=== PATIENT | male | born 1955 | race Caucasian/White ===

== ENCOUNTER 2020-03-29 08:41 | Emergency (ER) | payer OTHER ==
[2020-03-29] MEDS ORDERED: Sodium Chloride 0.9% 10 ML Syringe FLUSH PRN ×2 (08:49→09:18)
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
[2020-03-29] MEDS ORDERED: Iopamidol 612 MG/ML 100 ML Bottle IVPUSH ONE (09:18)
--- NOTE | 2020-03-29 09:30 | CT ---
Head CT Technique: Multiple axial sections through the brain were obtained. Intravenous contrast was not utilized. Comparison: No prior intracranial imaging is available. Findings: Ventricles along with basal cisterns and sulci over the convexities are mildly prominent. No abnormal parenchymal densities are seen. No evidence of intracranial hemorrhage. No midline shift or mass-effect is seen. Bone window settings were reviewed. Mild mucosal thickening is seen within the maxillary sinuses and ethmoid sinuses. Mild mucosal thickening is seen within the right frontal sinus. These findings are most likely due to chronic sinusitis. Mastoid sinuses show nothing acute. No acute calvarial finding is seen. Impression: 1. Sinus findings which are most likely due to mild chronic sinusitis. 2. No acute intracranial abnormality is appreciated. Diagnostic code #2 This report was dictated in MDT
--- NOTE | 2020-03-29 09:40 | CR ---
Left ankle: 4 views left ankle were obtained. Ankle mortise is symmetric. No acute fracture, dislocation or other bony abnormality is appreciated. Impression: 1. No abnormality is appreciated on 4 view left ankle exam. Diagnostic code #1 This report was dictated in MDT
--- NOTE | 2020-03-29 09:40 | CR ---
Chest: Frontal view of the chest was obtained. Comparison: No prior chest imaging. Bony density is noted off the inferior humeral head which is believed to be dystrophic or due to old injury. Heart size and mediastinum are normal. Lungs are clear. Minimal deformity of the distal left clavicle is seen compatible with old healed fracture. Surgical clips are seen from prior cholecystectomy. Impression: 1. Chronic findings. 2. Nothing acute is seen on frontal chest x-ray. Diagnostic code #2 This report was dictated in MDT
--- NOTE | 2020-03-29 09:40 | CT ---
CT abdomen and pelvis Technique: Multiple axial sections were obtained from above the dome of the diaphragm inferiorly through the pubic symphysis. Intravenous contrast was utilized. No oral contrast has been given. Findings: Large pancreatic abnormality is seen within the pancreatic head. Dilatation of the main pancreatic duct is seen and findings more likely represent pancreatic carcinoma given the pancreatic duct dilatation rather than acute pancreatic hematoma. Pancreatic head abnormality is difficult to measure but is approximately 10.8 cm in transverse dimension and 6.9 cm in AP dimension. Liver shows no discrete abnormality. Surgical clips seen from prior cholecystectomy. Pancreas also shows no discrete abnormality. Spleen is enlarged with length of 17.7 cm. Visualized lung bases show nothing acute. Adrenal glands show no discrete nodule. Kidneys show symmetric contrast enhancement without abnormality. Aorta shows no aneurysm. Portions of the celiac axis and superior mesenteric arteries course through the pancreatic abnormality. Mild retroperitoneal adenopathy is seen. No pelvic mass or adenopathy is seen. No free fluid is seen. Bone window settings were reviewed which shows a mild compression deformity within L1. This is most likely although as I do not see a definite acute fracture line. Disc space narrowing seen at L5-S1. Delayed images shows contrast excretion into both ureters as well as contrast within the bladder. Impression: 1. Large pancreatic abnormality. This most likely represents a pancreatic mass as the main pancreatic duct is dilated. This is less likely due to trauma. Pancreatic neoplasm is a strong possibility. Portions of the celiac axis and superior mesenteric artery course through this mass. 2. Mild retroperitoneal adenopathy is seen. 3. Splenomegaly is present. 4. Nothing acute is definitely appreciated. Diagnostic code #9 This report was dictated in MDT
--- NOTE | 2020-03-29 09:40 | CT ---
CT cervical spine Technique: Multiple axial sections were obtained through the cervical spine. Reconstructed coronal and sagittal images were obtained. Comparison: No prior cervical spine imaging. Findings: Vertebral body heights are maintained. Intervertebral disks are fairly well preserved. Mild degenerative change scattered within the apophyseal joints. Slight ligamentum nuchal calcification is seen. No fracture is appreciated. No bony central or bony neural foraminal stenosis is seen. No acute fracture or subluxation is seen. Impression: 1. Mild degenerative change. 2. Nothing acute is appreciated on CT study of the cervical spine. Diagnostic code #2 This report was dictated in MDT
[2020-03-29] MEDS ORDERED: Insulin Regular, Human 100 Units/ML 3 ML Vial SUBCUT ONE (10:49)
== END 2020-03-29 11:10 | disposition home or self-care (01) ==
LOC: JD.ED 08:41
DX: S93.402A Sprain of unspecified ligament of left ankle, initial encounter (principal); K86.89 Other specified diseases of pancreas; R73.9 Hyperglycemia, unspecified; V89.2XXA Person injured in unspecified motor-vehicle accident, traffic, initial encounter
CPT/HCPCS: 36415; 70450; 71045; 72125; 73610; 74177; 80053; 80306; 80307; 83690; 85025; 99284; J1815; Q9967; 99283